=== PATIENT | female | born 1990 | race Caucasian/White ===

== ENCOUNTER 2020-12-19 09:43 | Emergency (ER) | payer SELFPAY ==
[2020-12-19 10:45] LABS: Urine Blood 3+ (NEG); Urine Glucose NEGATIVE (NEG); Urine Protein 2+ (NEG); Urine Specific Gravity 1.025 (1.005-1.030); Urine pH 5.5 (5.0-7.0)
--- NOTE | 2020-12-19 10:48 | ER ---
Nurse's Notes [facility] Name: Sherice Triplett Age: 30 yrs Sex: Female : 1990 Arrival Date: 12/19/2020 Time: 09:51 Bed 16 Private MD: Diagnosis: Other specified abnormal uterine and vaginal bleeding Presentation: 12/19 09:51 Chief complaint: EMS states: Pt had an ; reports had a period last jl7 week lasting 5 days, bleeding stopped 2 days ago. Reports sitting on the toilet this morning and blood was coming out and it scared her. 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 Coronavirus screen: Client denies travel out of the [place] in the last 14 days. At this time, the client does not indicate any symptoms associated with coronavirus-19. Ebola Screen: No symptoms or risks identified at this time. Initial Sepsis Screen: Does the patient meet any 2 criteria? No. Patient's initial sepsis screen is negative. Does the patient have a suspected source of infection? No. Patient's initial sepsis screen is negative. Risk Assessment: Do you want to hurt yourself or someone else? Patient reports no desire to harm self or others. Onset of symptoms was December 19, 2020 at 09:00. Care prior to arrival: None. 09:51 Method Of Arrival: EMS: [facility] 09:51 Acuity: OLGA 3 jl7 Triage Assessment: 09:54 General: Appears in no apparent distress. uncomfortable, Behavior is cooperative, jl7 anxious. Pain: Complains of pain in right lower quadrant and left lower quadrant Pain currently is 4 out of 10 on a pain scale. Quality of pain is described as crampy, Pain began 1 hour ago. Is continuous. Neuro: Level of Consciousness is awake, alert, obeys commands, Oriented to person, place, time, situation. Cardiovascular: Patient's skin is warm and dry. Respiratory: Airway is patent Respiratory effort is even, unlabored, Respiratory pattern is regular, symmetrical. GI: Abdomen is non-distended, Reports lower abdominal pain, cramping. : Reports cramping, Vaginal bleeding. 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 - Social history:: Smoking status: unknown. - Family history:: not pertinent. - Hospitalizations: : No recent hospitalization is reported. Screenin:00 Abuse screen: Denies threats or abuse. Denies injuries from another. Nutritional jl7 screening: No deficits noted. Tuberculosis screening: No symptoms or risk factors identified. Fall Risk None identified. Assessment: 10:00 General: See triage assessment. jl7 Vital Signs: 09:51 BP 136 / 90; Pulse 89; Resp 17; Temp 98.3; Pulse Ox 98% ; Weight 83.91 kg; Height 5 ft. jl7 4 in. (162.56 cm); Pain 4/10; 09:51 Body Mass Index 31.75 (83.91 kg, 162.56 cm) jl7 ED Course: 09:51 Patient arrived in ED. jl7 09:54 Triage completed. jl7 09:54 Arm band placed on right wrist. jl7 10:00 Patient has correct armband on for positive identification. Bed in low position. Call jl7 light in reach. Side rails up X 1. Pulse ox on. NIBP on. 10:08 Ricarda Olson, KEVIN is Primary Nurse. jl7 10:12 Boyd Ferguson MD is Attending Physician. rn 10:15 Urine collected: clean catch specimen, blood tinged. jl7 10:59 No provider procedures requiring assistance completed. Patient did not have IV access jl7 during this emergency room visit. Administered Medications: No medications were administered Outcome: 10:15 Discharged to Rehab Facility jl7 10:15 Condition: stable 10:15 Discharge instructions given to patient, Instructed on discharge instructions, follow up and referral plans. Demonstrated understanding of instructions, follow-up care. 10:47 Discharge ordered by . rn 10:59 Patient left the ED. jl7 Signatures: Boyd Ferguson MD MD rn Leal, Jahala, RN RN jl7
--- NOTE | 2020-12-19 10:48 | EDPHYS ---
Physician Documentation [facility] Name: Sherice Triplett Age: 30 yrs Sex: Female : 1990 Arrival Date: 12/19/2020 Time: 09:51 Bed 16 Private MD: ED Physician Boyd Ferguson HPI: 12/19 10:44 This 30 yrs old Female presents to ER via EMS with complaints of Vaginal rn Bleeding. 10:44 The patient presents with vaginal bleeding that is light, with no clots. Onset: The rn symptoms/episode began/occurred this morning. Modifying factors: The symptoms are alleviated by nothing, the symptoms are aggravated by nothing. Associated signs and symptoms: Pertinent positives: cramping, Pertinent negatives: fever, vaginal discharge. Severity of symptoms: At their worst the symptoms were mild, in the emergency department the symptoms have improved. The patient has not experienced similar symptoms in the past. The patient has been recently seen by a physician:. Reports elective 1 month ago, has had 2 episodes of bleeding since then, each lasting a few days, thought was done, then passed small amount of blood today, already improved, no vaginal discharge or abd pain. No fever. Has not followed up with her OB yet. . 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 - Social history:: Smoking status: unknown. - Family history:: not pertinent. - Hospitalizations: : No recent hospitalization is reported. ROS: 10:44 Positive for vaginal bleeding, Negative for vaginal discharge, vaginal itching. rn 10:44 Constitutional: Negative for fever, chills, and weight loss, Eyes: Negative for injury, pain, redness, and discharge, Neck: Negative for injury, pain, and swelling, Cardiovascular: Negative for chest pain, palpitations, and edema, Respiratory: Negative for shortness of breath, cough, wheezing, and pleuritic chest pain, Abdomen/GI: Negative for abdominal pain, nausea, vomiting, diarrhea, and constipation, Back: Negative for injury and pain, MS/Extremity: Negative for injury and deformity, Skin: Negative for injury, rash, and discoloration, Neuro: Negative for headache, weakness, numbness, tingling, and seizure. Exam: 10:44 Constitutional: This is a well developed, well nourished patient who is awake, alert, rn and in no acute distress. Head/Face: Normocephalic, atraumatic. Eyes: Pupils equal round and reactive to light, extra-ocular motions intact. Lids and lashes normal. Conjunctiva and sclera are non-icteric and not injected. Cornea within normal limits. Periorbital areas with no swelling, redness, or edema. Cardiovascular: Regular rate and rhythm. No pulse deficits. Respiratory: No increased work of breathing, no retractions or nasal flaring. Abdomen/GI: soft, non-tender Skin: Warm, dry with normal turgor. Normal color with no rashes, no lesions, and no evidence of cellulitis. MS/ Extremity: Pulses equal, no cyanosis. Neurovascular intact. Full, normal range of motion. Equal circumference. Neuro: Awake and alert, GCS 15 Vital Signs: 09:51 BP 136 / 90; Pulse 89; Resp 17; Temp 98.3; Pulse Ox 98% ; Weight 83.91 kg; Height 5 ft. jl7 4 in. (162.56 cm); Pain 4/10; 09:51 Body Mass Index 31.75 (83.91 kg, 162.56 cm) jl7 MDM: 10:12 Patient medically screened. rn 10:44 Differential diagnosis: retained products, new , post D\T\C bleeding, menstrual rn cycle. Data reviewed: vital signs, nurses notes, lab test result(s), and as a result, I will discharge patient. Counseling: I had a detailed discussion with the patient and/or guardian regarding: the historical points, exam findings, and any diagnostic results supporting the discharge/admit diagnosis, lab results, the need for outpatient follow up, to return to the emergency department if symptoms worsen or persist or if there are any questions or concerns that arise at home. Special discussion: I discussed with the patient/guardian in detail that at this point there is no indication for admission to the hospital. It is understood, however, that if the symptoms persist or worsen the patient needs to return immediately for re-evaluation. ED course: UA neg for preg. Bleeding already improved, could have dislodged a clot or scab from D\T\C, could be menstrual cycle, will dc home with OB f/u. 12/19 10:27 Order name: Urine Dipstick--Ancillary (enter results); Complete Time: 10:48 bd 12/19 10:28 Order name: Urine --Ancillary (enter results); Complete Time: 10:48 bd 12/19 10:20 Order name: Urine Test (obtain specimen); Complete Time: 10:29 rn 12/19 10:20 Order name: Urine Dipstick-Ancillary (obtain specimen); Complete Time: 10:30 rn Administered Medications: No medications were administered Disposition: 12/19/20 10:47 Discharged to Home. Impression: Other specified abnormal uterine and vaginal bleeding. - Condition is Stable. - Discharge Instructions: Abnormal Uterine Bleeding, Dilation and Curettage or Vacuum Curettage, Care After. - Medication Reconciliation Form, Thank You Letter, Antibiotic Education, Prescription Opioid Use form. - Follow up: Private Physician; When: As needed; Reason: Recheck today's complaints, Re-evaluation by your physician. - Problem is new. - Symptoms have improved. Signatures: Dispatcher [employer] EDMS Boyd Ferguson MD MD rn Leal, Jahala, RN RN jl7 Corrections: (The following items were deleted from the chart) 10:59 10:47 12/19/2020 10:47 Discharged to Home. Impression: Other specified abnormal uterine jl7 and vaginal bleeding. Condition is Stable. Forms are Medication Reconciliation Form, Thank You Letter, Antibiotic Education, Prescription Opioid Use. Follow up: Private Physician; When: As needed; Reason: Recheck today's complaints, Re-evaluation by your physician. Problem is new. Symptoms have improved. rn
[2020-12-19 11:04] VITALS: BP 136/90; TEMP 98.3; O2SAT 98
== END 2020-12-19 10:59 | disposition home or self-care (01) ==
LOC: ER 09:43 → EDSEX 09:43 → ER 10:59
DX: N93.8 Other specified abnormal uterine and vaginal bleeding (principal)
CPT/HCPCS: 81003; 81025; 99283

== ENCOUNTER 2020-12-19 15:23 | Emergency (ER) | payer SELFPAY ==
[2020-12-19 16:08] LABS: Protime INR 0.95
[2020-12-19 16:09] LABS: Absolute Lymphocytes (CBC) 2.1 K/uL (0.7-4.9); Basophils % 1.2 % (0-1.3); Hematocrit 36.8 % (36.0-45.0); Lymphocytes % 26.5 % (15.3-44.8); RBC Red Blood Cell Count 4.02 M/uL (3.86-4.86)
[2020-12-19 16:21] LABS: ALT/SGPT 55 U/L (12-78); AST/SGOT 29 U/L (15-37); Albumin 3.6 g/dL (3.4-5.0); Alkaline Phosphatase 79 U/L (45-117); BUN Blood Urea Nitrogen 12 mg/dL (7-18); Bicarbonate 27 mmol/L (21-32); Bilirubin Direct 0.1 mg/dL (0-0.2); Bilirubin Total 0.3 mg/dL (0.2-1.0); Glucose Level 92 mg/dL (74-106); Magnesium 2.3 mg/dL (1.8-2.4); NT PRO-BNP 14 pg/mL (<125); Potassium 3.8 mmol/L (3.5-5.1); Protein, Total 7.3 g/dL (6.4-8.2); Sodium Level 143 mmol/L (136-145); Troponin (Emerg Dept Use Only) < 0.02 ng/mL (0.0-0.045)
[2020-12-19] MEDS ORDERED: ONDANSETRON 4 MG/2 ML VIAL ONE (16:31)
[2020-12-19] MEDS ORDERED: NA CHLORIDE 0.9% 1,000 ML ONE (16:31)
--- NOTE | 2020-12-19 17:14 | RAD REPORT ---
EXAM DESCRIPTION: Pastor Single View12/19/2020 4:36 pm CLINICAL HISTORY: Hypotension COMPARISON: none FINDINGS: The lungs appear clear of acute infiltrate. The heart is normal size IMPRESSION: No acute abnormalities displayed
--- NOTE | 2020-12-19 17:52 | ER ---
Nurse's Notes [facility] Name: Sherice Triplett Age: 30 yrs Sex: Female : 1990 Arrival Date: 12/19/2020 Time: 15:27 Bed 20 Private MD: Diagnosis: Near syncope;Hypotension, unspecified Presentation: 12/19 15:33 Chief complaint: Patient states: Here for vaginal bleeding earlier today. Stated she ll1 went back to [facility]. After resting, started having near syncope feeling with nausea. Called 911. BP 57/22, other vitals WNL. Coronavirus screen: Client denies travel out of the [place] in the last 14 days. At this time, the client does not indicate any symptoms associated with coronavirus-19. Ebola Screen: Patient denies travel to an Ebola-affected area in the 21 days before illness onset. Initial Sepsis Screen: Does the patient meet any 2 criteria? No. Patient's initial sepsis screen is negative. Does the patient have a suspected source of infection? Yes: Other: vag bleed. Risk Assessment: Do you want to hurt yourself or someone else? Patient reports no desire to harm self or others. Onset of symptoms was December 19, 2020. 15:33 Method Of Arrival: Ambulatory 1 15:33 Acuity: OLGA 2 ll1 Historical: - Allergies: 15:37 No Known Allergies; ll1 - PMHx: 15:37 None; ll1 - PSHx: 15:37 None; ll1 - Immunization history:: Flu vaccine is not up to date. - Social history:: Smoking status: Patient reports the use of cigarette tobacco products, smokes one-half pack cigarettes per day. Screenin:59 Abuse screen: Denies threats or abuse. Denies injuries from another. Nutritional iw screening: No deficits noted. Tuberculosis screening: No symptoms or risk factors identified. Fall Risk IV access (20 points). Assessment: 16:58 Reassessment: Patient appears in no apparent distress at this time. Patient and/or iw family updated on plan of care and expected duration. Pain level reassessed. Patient is alert, oriented x 3, equal unlabored respirations, skin warm/dry/pink. Vital Signs: 15:33 BP 103 / 66; Pulse 83; Resp 17; Temp 97.3; Pulse Ox 98% ; Weight 81.65 kg; Height 5 ft. ll1 4 in. (162.56 cm); Pain 0/10; 16:35 BP 94 / 59 Supine; Pulse 71; iw 16:40 BP 107 / 63 Sitting; Pulse 80; iw 16:45 BP 101 / 73 Standing; Pulse 85; iw 15:33 Body Mass Index 30.90 (81.65 kg, 162.56 cm) ll1 ED Course: 15:27 Patient arrived in ED. mr 15:36 Triage completed. ll1 15:37 Arm band placed on. ll1 15:39 Hilary Platt, RN is Primary Nurse. iw 15:41 Eduardo Aguilera NP is PHCP. pm1 15:41 Boyd Ferguson MD is Attending Physician. pm1 16:00 Initial lab(s) drawn, by me, sent to lab. Inserted saline lock: 20 gauge in left iw antecubital area, using aseptic technique. 16:35 XRAY Chest (1 view) In Process Unspecified. EDMS Administered Medications: 16:28 Drug: Zofran (Ondansetron) 4 mg Route: IVP; Site: left antecubital; iw 16:29 Drug: NS 0.9% 1000 ml Route: IV; Rate: 1000 ml; Site: left antecubital; iw Outcome: 17:51 Discharge ordered by . pm1 18:50 Patient left the ED. iw Signatures: Dispatcher [employer] EDMS Huber Yesenia mr Hilary Platt, KEVIN BROWN iw Eduardo Aguilera, KIESHA SIGNAL PERSON pm1 Varghese Perez RN RN [facility]
--- NOTE | 2020-12-19 17:52 | EDPHYS ---
Physician Documentation [facility] Name: Sherice Triplett Age: 30 yrs Sex: Female : 1990 Arrival Date: 12/19/2020 Time: 15:27 Bed 20 Private MD: ED Physician Boyd Ferguson HPI: 12/19 16:19 This 30 yrs old Female presents to ER via Ambulatory with complaints of pm1 Hypotension. 16:19 The patient has experienced near-syncope, felt faint. Onset: The symptoms/episode pm1 began/occurred just prior to arrival. Duration: This was a single episode. Context: occurred rehabilitation facility for alcohol and methamphetamine. Has been clean for 3 weeks. Associated injury: The patient did not suffer any apparent associated injury. Associated signs and symptoms: Pertinent positives: dizziness, spotting vaginal bleeding, Pertinent negatives: abdominal pain, chest pain, shortness of breath. Current symptoms: Currently, the patient is not experiencing any symptoms, the patient feels back to baseline. The patient has been recently seen at the [facility] Emergency Department, today, vaginal bleeding that improved markedly. Historical: - Allergies: 15:37 No Known Allergies; ll1 - PMHx: 15:37 None; ll1 - PSHx: 15:37 None; ll1 - Immunization history:: Flu vaccine is not up to date. - Social history:: Smoking status: Patient reports the use of cigarette tobacco products, smokes one-half pack cigarettes per day. ROS: 16:19 Constitutional: Negative for fever, chills, and weight loss, Cardiovascular: Negative pm1 for chest pain, palpitations, and edema, Respiratory: Negative for shortness of breath, cough, wheezing, and pleuritic chest pain, Abdomen/GI: Negative for abdominal pain, nausea, vomiting, diarrhea, and constipation, Back: Negative for injury and pain. 16:19 MS/Extremity: Negative for injury and deformity, Skin: Negative for injury, rash, and discoloration. 16:19 : Positive for vaginal bleeding, Negative for urinary symptoms. 16:19 Neuro: Positive for dizziness, near syncope, Negative for numbness, tingling, weakness. Exam: 16:19 Abdomen/GI: Inspection: abdomen appears normal, Palpation: abdomen is soft and pm1 non-tender, in all quadrants. 16:19 Constitutional: This is a well developed, well nourished patient who is awake, alert, and in no acute distress. Head/Face: Normocephalic, atraumatic. 16:19 Back: No spinal tenderness. No costovertebral tenderness. Full range of motion. Skin: Warm, dry with normal turgor. Normal color with no rashes, no lesions, and no evidence of cellulitis. MS/ Extremity: Pulses equal, no cyanosis. Neurovascular intact. Full, normal range of motion. 16:19 Cardiovascular: Exam negative for acute changes, Rate: normal, Rhythm: regular, Pulses: no pulse deficits are appreciated, Heart sounds: normal, normal S1and S2. 16:19 Respiratory: Exam negative for acute changes, respiratory distress, shortness of breath. 16:19 Neuro: Exam negative for acute changes, Orientation: is normal, Mentation: is normal, Cranial nerves: CN II- XII are normal as tested, Motor: is normal, moves all fours, Gait: is steady, at a normal pace, without difficulty. Vital Signs: 15:33 BP 103 / 66; Pulse 83; Resp 17; Temp 97.3; Pulse Ox 98% ; Weight 81.65 kg; Height 5 ft. ll1 4 in. (162.56 cm); Pain 0/10; 16:35 BP 94 / 59 Supine; Pulse 71; iw 16:40 BP 107 / 63 Sitting; Pulse 80; iw 16:45 BP 101 / 73 Standing; Pulse 85; iw 15:33 Body Mass Index 30.90 (81.65 kg, 162.56 cm) ll1 MDM: 15:43 Patient medically screened. pm1 17:28 Data reviewed: vital signs. Data interpreted: Pulse oximetry: on room air is 98 %. pm1 Interpretation: normal. 17:50 Counseling: I had a detailed discussion with the patient and/or guardian regarding: the pm1 historical points, exam findings, and any diagnostic results supporting the discharge/admit diagnosis, lab results, radiology results, the need for outpatient follow up, to return to the emergency department if symptoms worsen or persist or if there are any questions or concerns that arise at home. 12/19 15:49 Order name: Basic Metabolic Panel pm1 12/19 15:49 Order name: CBC with Diff; Complete Time: 16:14 pm1 12/19 15:49 Order name: LFT's; Complete Time: 16:38 pm1 12/19 15:49 Order name: Magnesium; Complete Time: 16:38 pm1 12/19 15:49 Order name: NT PRO-BNP; Complete Time: 16:38 pm1 12/19 15:49 Order name: PT-INR; Complete Time: 16:14 pm1 12/19 15:49 Order name: Orthostatic Blood Pressure; Complete Time: 17:19 pm1 12/19 15:49 Order name: Troponin (emerg Dept Use Only); Complete Time: 16:38 pm1 12/19 15:49 Order name: XRAY Chest (1 view); Complete Time: 17:16 pm1 12/19 15:49 Order name: EKG; Complete Time: 15:50 pm1 12/19 15:49 Order name: Cardiac monitoring; Complete Time: 17:19 pm1 12/19 15:50 Order name: Basic Metabolic Panel; Complete Time: 16:38 EDMS 12/19 15:49 Order name: EKG - Nurse/Tech; Complete Time: 17:19 pm1 12/19 15:49 Order name: IV Saline Lock; Complete Time: 16:05 pm1 12/19 15:49 Order name: Labs collected and sent; Complete Time: 16:05 pm1 12/19 15:49 Order name: O2 Per Protocol; Complete Time: 16:05 pm1 12/19 15:49 Order name: O2 Sat Monitoring; Complete Time: 16:05 pm1 EC:17 Rate is 63 beats/min. Rhythm is regular, Normal Sinus Rhythm with No ectopy. No Q pm1 waves. T waves are Normal. No ST changes noted. Clinical impression: Normal ECG. Administered Medications: 16:28 Drug: Zofran (Ondansetron) 4 mg Route: IVP; Site: left antecubital; iw 16:29 Drug: NS 0.9% 1000 ml Route: IV; Rate: 1000 ml; Site: left antecubital; iw Disposition: 18:58 Co-signature as Attending Physician, Boyd Ferguson MD. rn Disposition: 12/19/20 17:51 Discharged to Home. Impression: Near syncope, Hypotension, unspecified. - Condition is Stable. - Discharge Instructions: Hypotension, Near-Syncope. - Medication Reconciliation Form, Thank You Letter, Antibiotic Education, Prescription Opioid Use form. - Follow up: Emergency Department; When: As needed; Reason: Worsening of condition. Follow up: Private Physician; When: 2 - 3 days; Reason: Recheck today's complaints, Continuance of care, Re-evaluation by your physician. - Problem is new. - Symptoms have improved. Signatures: Dispatcher [employer] EDMS Hilary Platt RN RN iw Boyd Ferguson MD MD rn Marinas, Patrick, ESTIMATOR BINDING ESTIMATOR BINDING pm1 Varghese Perez RN RN ll1 Corrections: (The following items were deleted from the chart) 18:50 17:51 12/19/2020 17:51 Discharged to Home. Impression: Near syncope; Hypotension, iw unspecified. Condition is Stable. Forms are Medication Reconciliation Form, Thank You Letter, Antibiotic Education, Prescription Opioid Use. Follow up: Emergency Department; When: As needed; Reason: Worsening of condition. Follow up: Private Physician; When: 2 - 3 days; Reason: Recheck today's complaints, Continuance of care, Re-evaluation by your physician. Problem is new. Symptoms have improved. pm1
[2020-12-19 19:08] VITALS: TEMP 97.3; O2SAT 98
[2020-12-19 19:11] VITALS: BP 101/73
--- NOTE | 2020-12-20 06:21 | EKG ---
Test Date: 2020-12-19 Test Time: 17:15:21 Wrapping Machine Operator: IQRA MEASUREMENT RESULTS: Intervals: Rate: 63 NV: 124 QRSD: 84 QT: 424 QTc: 433 [place]: P: 6 NV: 124 QRS: 57 T: 11 INTERPRETIVE STATEMENTS: Normal sinus rhythm Normal ECG No previous ECG available for comparison Electronically Signed On 12-20-20 06:19:20 CDT by Adam Moise
== END 2020-12-19 18:50 | disposition home or self-care (01) ==
LOC: ER 15:23
DX: I95.9 Hypotension, unspecified (principal); F17.210 Nicotine dependence, cigarettes, uncomplicated
CPT/HCPCS: 36415; 71045; 80048; 80076; 83735; 83880; 84484; 85025; 85610; 93005; 96374; 99284; J2405; J7030